=== PATIENT | male | born 1935 | race Caucasian/White ===

== ENCOUNTER 2016-03-25 09:31 | Day surgery (SDC) | payer OTHER ==
[~2016-03-25] VITALS: Ht 188 cm; Wt 150.0 kg
[~2016-03-25 09:31] MED LIST: ALLOPURINOL100 MG PO; ATIVAN0.5 MG PO; COUMADIN1 MG PO; COUMADIN2 MG PO; COUMADIN5 MG PO; CYCLOBENZAPRINE10 MG PO; CYPIONATE; ELAVIL50 MG PO; ELIQUIS5 MG PO; EMLA 30 GM30 GM TP; ENDOCET 10-3251 EACH PO; IRON325 M1 PO; LORTAB 10-3251 EACH PO; LOTRISONE15 GM TP; MIRALAX255 GM PO; NEPHRO-VITE,1 TABLET PO; NITROSTAT0.4 MG SL; PRAVACHOL20 MG PO; PREDNISONE5 MG PO; RENA-VITE RX T1 EACH PO; REQUIP0.5 MG PO; REQUIP1 MG PO; SENNA PLUS TAB1 EACH PO; SENNA-S TABLET1 EACH PO; SPIRIVA1 INHALATI IH; TESTOSTERO200 MG/12 IM; VALIUM5 MG PO; WARFARIN SODIUM5 MG PO; WARFARIN SODIUM6 MG PO; XYLOCAINE VISC100 ML MM
[2016-03-25 10:30] LABS: PROTHROMBIN TIME 20.3 (9.2-11.2); PTT 43.4 (25-32)
[2016-03-25 11:23] LABS: METH RESISTANT S AUREUS PCR NEGATIVE (NEGATIVE)
[2016-03-25 11:24] LABS: PROBE CHECK PASS; SPECIMEN PROCESSING CONTROL PASS
== END 2016-03-25 13:00 | disposition home or self-care (01) ==
LOC: CATH 09:31
PROVIDERS: Surgery
PROC: 05CB0ZZ Extirpation of Matter from Right Basilic Vein, Open Approach (ICD-10-PCS; principal; 2016-03-25)
DX: T82.868A Thrombosis due to vascular prosthetic devices, implants and grafts, initial encounter (principal); Y83.2 Surgical operation with anastomosis, bypass or graft as the cause of abnormal reaction of the patient, or of later complication, without mention of misadventure at the time of the procedure; Z99.2 Dependence on renal dialysis
CPT/HCPCS: 85610; 85730; 87641; C1725; C1757; C1769; C1874; C1894; C2628; J0690; J1644; J2250; J3010; J3370; J7050; S0020

== ENCOUNTER 2016-04-03 14:13 | Day surgery (SDC) | payer OTHER ==
[~2016-04-03] VITALS: Ht 188 cm; Wt 149.4 kg
[2016-04-03] MEDS ORDERED: LYRICA50 MG PO (15:07)
[2016-04-03] MEDS ORDERED: PRIMIDONE50 MG PO (15:08)
[2016-04-03] MEDS ORDERED: METRONIDAZOLE500 MG PO (15:11)
[2016-04-03 15:16] VITALS: BP 106/52
[2016-04-03 15:16] LABS: HEMATOCRIT 29.1 % (38.0-50.0); MCV 103.9 FL (86-99)
[2016-04-03 15:26] LABS: INTER. NORMALIZED RATIO 2.2; PROTHROMBIN TIME 23.4 (9.2-11.2)
[2016-04-03 15:42] LABS: ANION GAP 14 MEQ/L (2-14); CHLORIDE 97 MEQ/L (99-109); GFR ESTIMATE (CALCULATED) 7 mL/min/; GLUCOSE 95 mg/dL (70-99); SAMPLE HEMOLYSIS CHECK 0; SAMPLE ICTERIC CHECK 0; SAMPLE LIPEMIA CHECK 0; SODIUM 135 MEQ/L (136-147); UREA NITROGEN (BUN) 35 mg/dL (9-23)
[2016-04-03 16:28] LABS: METH RESISTANT S AUREUS PCR NEGATIVE (NEGATIVE)
[2016-04-03 16:36] LABS: PROBE CHECK PASS; SPECIMEN PROCESSING CONTROL PASS
[2016-04-03 22:12] VITALS: BP 101/51
[2016-04-03 22:45] VITALS: BP 105/49
== END 2016-04-03 23:00 | disposition home or self-care (01) ==
LOC: SDC 14:13
PROVIDERS: Surgery
DX: T82.868A Thrombosis due to vascular prosthetic devices, implants and grafts, initial encounter (principal); Y83.2 Surgical operation with anastomosis, bypass or graft as the cause of abnormal reaction of the patient, or of later complication, without mention of misadventure at the time of the procedure; Z99.2 Dependence on renal dialysis; I12.0 Hypertensive chronic kidney disease with stage 5 chronic kidney disease or end stage renal disease; N18.6 End stage renal disease; I50.9 Heart failure, unspecified; Z95.0 Presence of cardiac pacemaker; J44.9 Chronic obstructive pulmonary disease, unspecified; K21.9 Gastro-esophageal reflux disease without esophagitis
CPT/HCPCS: 80048; 85014; 85018; 85610; 87641; 93005; C1725; C1757; C1769; C1874; C1894; C2628; J1644; J2405

== ENCOUNTER 2016-04-17 09:16 | Day surgery (SDC) | payer OTHER ==
[~2016-04-17] VITALS: Ht 188 cm; Wt 149.2 kg
[~2016-04-17 09:16] MED LIST changes: +CLINDAMYCIN HC300 MG PO; +LYRICA50 MG PO; +METRONIDAZOLE500 MG PO; +PRIMIDONE50 MG PO
[2016-04-17 11:30] LABS: METH RESISTANT S AUREUS PCR NEGATIVE (NEGATIVE)
[2016-04-17 11:31] LABS: PROBE CHECK PASS; SPECIMEN PROCESSING CONTROL PASS
[2016-04-17 12:51] LABS: INTER. NORMALIZED RATIO 2.9
== END 2016-04-17 13:25 | disposition home or self-care (01) ==
LOC: CATH 09:16
PROVIDERS: Surgery
PROC: 03C70ZZ Extirpation of Matter from Right Brachial Artery, Open Approach (ICD-10-PCS; principal; 2016-04-17)
DX: T82.868A Thrombosis due to vascular prosthetic devices, implants and grafts, initial encounter (principal); Y83.2 Surgical operation with anastomosis, bypass or graft as the cause of abnormal reaction of the patient, or of later complication, without mention of misadventure at the time of the procedure; I12.0 Hypertensive chronic kidney disease with stage 5 chronic kidney disease or end stage renal disease; N18.6 End stage renal disease; J44.9 Chronic obstructive pulmonary disease, unspecified; E78.5 Hyperlipidemia, unspecified
CPT/HCPCS: 85610; 87081; 87641; C1725; C1757; C1769; C1894; C2628; J0690; J1644; J2250; J3010; S0020

== ENCOUNTER 2016-04-27 13:04 | Day surgery (SDC) | payer OTHER ==
[~2016-04-27] VITALS: Ht 188 cm; Wt 149.5 kg
[2016-04-27 14:57] VITALS: BP 110/50
[2016-04-27 15:15] LABS: INTER. NORMALIZED RATIO 1.8; PROTHROMBIN TIME 19.1 (9.2-11.2)
[2016-04-27 15:36] LABS: ANION GAP 10 MEQ/L (2-14); CHLORIDE 99 MEQ/L (99-109); GFR ESTIMATE (CALCULATED) 16 mL/min/; GLUCOSE 94 mg/dL (70-99); POTASSIUM 4.6 MEQ/L (3.7-5.4); SAMPLE HEMOLYSIS CHECK 0; SAMPLE ICTERIC CHECK 0; SAMPLE LIPEMIA CHECK 0; SODIUM 136 MEQ/L (136-147); UREA NITROGEN (BUN) 18 mg/dL (9-23)
[2016-04-27 16:12] LABS: METH RESISTANT S AUREUS PCR NEGATIVE (NEGATIVE)
[2016-04-27 16:15] LABS: PROBE CHECK PASS; SPECIMEN PROCESSING CONTROL PASS
[2016-04-27 18:25] VITALS: BP 113/58
== END 2016-04-27 18:55 | disposition home or self-care (01) ==
LOC: CATH 13:04 → SDC 13:04 → CATH 14:30 → SDC 18:55
PROVIDERS: Surgery
DX: T82.868A Thrombosis due to vascular prosthetic devices, implants and grafts, initial encounter (principal); Y83.2 Surgical operation with anastomosis, bypass or graft as the cause of abnormal reaction of the patient, or of later complication, without mention of misadventure at the time of the procedure; Z99.2 Dependence on renal dialysis; I12.0 Hypertensive chronic kidney disease with stage 5 chronic kidney disease or end stage renal disease; N18.6 End stage renal disease; K21.9 Gastro-esophageal reflux disease without esophagitis; I48.91 Unspecified atrial fibrillation; Z79.01 Long term (current) use of anticoagulants; M10.9 Gout, unspecified
CPT/HCPCS: 80048; 85610; 87641; C1757; C1768; C2628; J1644; J2250; J2405; J2720; J3010

== ENCOUNTER 2016-05-25 09:50 | Day surgery (SDC) | payer OTHER ==
[~2016-05-25] VITALS: Ht 188 cm; Wt 149.0 kg
[2016-05-25 12:11] LABS: METH RESISTANT S AUREUS PCR NEGATIVE (NEGATIVE)
[2016-05-25 12:13] LABS: PROBE CHECK PASS; SPECIMEN PROCESSING CONTROL PASS
== END 2016-05-25 14:15 | disposition home or self-care (01) ==
LOC: CATH 09:50
PROVIDERS: Surgery
DX: T82.868A Thrombosis due to vascular prosthetic devices, implants and grafts, initial encounter (principal); T82.858A Stenosis of other vascular prosthetic devices, implants and grafts, initial encounter; Y83.2 Surgical operation with anastomosis, bypass or graft as the cause of abnormal reaction of the patient, or of later complication, without mention of misadventure at the time of the procedure; N18.6 End stage renal disease; Z99.2 Dependence on renal dialysis
CPT/HCPCS: 87641; C1725; C1757; C1769; C1874; C1894; C2628; J1644; J2250; J3010; S0020

== ENCOUNTER 2016-06-23 11:02 | Day surgery (SDC) | payer OTHER ==
[2016-06-23] MEDS ORDERED: PLAVIX75 MG PO (11:37)
[2016-06-23] MEDS ORDERED: RENVELA800 MG PO (11:38)
[2016-06-23 14:58] LABS: METH RESISTANT S AUREUS PCR NEGATIVE (NEGATIVE)
[2016-06-23 15:04] LABS: PROBE CHECK PASS; SPECIMEN PROCESSING CONTROL PASS
== END 2016-06-23 13:45 | disposition home or self-care (01) ==
LOC: CATH 11:02
PROVIDERS: Surgery
DX: T82.858A Stenosis of other vascular prosthetic devices, implants and grafts, initial encounter (principal); Y83.2 Surgical operation with anastomosis, bypass or graft as the cause of abnormal reaction of the patient, or of later complication, without mention of misadventure at the time of the procedure; I12.0 Hypertensive chronic kidney disease with stage 5 chronic kidney disease or end stage renal disease; N18.6 End stage renal disease; Z99.2 Dependence on renal dialysis; J44.9 Chronic obstructive pulmonary disease, unspecified; I25.10 Atherosclerotic heart disease of native coronary artery without angina pectoris; Z98.61 Coronary angioplasty status; I25.2 Old myocardial infarction; E78.5 Hyperlipidemia, unspecified; Z99.81 Dependence on supplemental oxygen; M19.90 Unspecified osteoarthritis, unspecified site; Z96.643 Presence of artificial hip joint, bilateral; Z95.0 Presence of cardiac pacemaker; Z88.1 Allergy status to other antibiotic agents; Z88.8 Allergy status to other drugs, medicaments and biological substances; Z87.891 Personal history of nicotine dependence
CPT/HCPCS: 87641; C1725; C1769; C1894; J1644; J2250; J3010

== ENCOUNTER 2016-07-17 14:12 | Day surgery (SDC) | payer OTHER ==
[~2016-07-17 14:12] MED LIST changes: +PLAVIX75 MG PO; +RENVELA800 MG PO
[2016-07-17 17:20] LABS: METH RESISTANT S AUREUS PCR NEGATIVE (NEGATIVE)
[2016-07-17 17:23] LABS: PROBE CHECK PASS; SPECIMEN PROCESSING CONTROL PASS
== END 2016-07-17 17:58 | disposition home or self-care (01) ==
LOC: CATH 14:12
PROVIDERS: Surgery
PROC: 057Y3DZ Dilation of Upper Vein with Intraluminal Device, Percutaneous Approach (ICD-10-PCS; principal; 2016-07-17)
PROC: 3E03317 Introduction of Other Thrombolytic into Peripheral Vein, Percutaneous Approach (ICD-10-PCS; principal; 2016-07-17)
PROC: 05CY0ZZ Extirpation of Matter from Upper Vein, Open Approach (ICD-10-PCS; principal; 2016-07-17)
PROC: B51W1ZZ Fluoroscopy of Dialysis Shunt/Fistula using Low Osmolar Contrast (ICD-10-PCS; principal; 2016-07-17)
DX: T82.868A Thrombosis due to vascular prosthetic devices, implants and grafts, initial encounter (principal); I12.0 Hypertensive chronic kidney disease with stage 5 chronic kidney disease or end stage renal disease; N18.6 End stage renal disease; Z99.0 Dependence on aspirator; Z79.01 Long term (current) use of anticoagulants; I25.10 Atherosclerotic heart disease of native coronary artery without angina pectoris; J44.9 Chronic obstructive pulmonary disease, unspecified; E78.00 Pure hypercholesterolemia, unspecified; Z95.0 Presence of cardiac pacemaker; Z79.4 Long term (current) use of insulin; Z87.891 Personal history of nicotine dependence
CPT/HCPCS: 87641; C1725; C1757; C1769; C1894; C2628; J1644; J2250; J3010; S0020

== ENCOUNTER 2016-07-31 12:43 | Day surgery (SDC) | payer OTHER ==
[~2016-07-31] VITALS: Ht 188 cm; Wt 149.0 kg
[~2016-07-31 12:43] MED LIST changes: +AMOXICILLIN500 MG PO
[2016-07-31] MEDS ORDERED: ELAVIL50 MG PO (13:21)
[2016-07-31 13:22] LABS: HEMATOCRIT 38.6 % (38.0-50.0); MCH 32.5 PG (29.0-34.0); MCHC 31.3 G/DL (30.0-36.0); MCV 103.8 FL (86-99); MEAN PLAT.VOLUME 9.7 uM^3 (9.0-12.4); PLATELET COUNT 154 K/uL (156-360); RBC DIS.WIDTH-CV 15.8 % (11.8-14.6); RBC DIS.WIDTH-SD 59.3 % (39-53); RED BLOOD COUNT 3.72 M/uL (4.00-5.50); WHITE BLOOD COUNT 8.4 K/uL (4.1-10.2)
[2016-07-31] MEDS ORDERED: FISH OIL300 MG PO (13:22)
[2016-07-31] MEDS ORDERED: SENNA LAXATIVE25 MG PO (13:23)
[2016-07-31 13:27] VITALS: BP 123/58
[2016-07-31 13:36] LABS: INTER. NORMALIZED RATIO 1.3; PROTHROMBIN TIME 12.9 (9.2-11.2); PTT 29.9 (25-32)
[2016-07-31 13:47] LABS: ANION GAP 14 MEQ/L (2-14); CHLORIDE 99 MEQ/L (99-109); GFR ESTIMATE (CALCULATED) 16 mL/min/; GLUCOSE 96 mg/dL (70-99); POTASSIUM 4.8 MEQ/L (3.7-5.4); SAMPLE HEMOLYSIS CHECK 0; SAMPLE ICTERIC CHECK 0; SAMPLE LIPEMIA CHECK 0; SODIUM 139 MEQ/L (136-147); UREA NITROGEN (BUN) 15 mg/dL (9-23)
[2016-07-31 14:28] LABS: METH RESISTANT S AUREUS PCR NEGATIVE (NEGATIVE)
[2016-07-31 14:29] LABS: PROBE CHECK PASS; SPECIMEN PROCESSING CONTROL PASS
[2016-07-31 17:25] VITALS: BP 160/68
[2016-07-31 18:02] VITALS: BP 135/71
== END 2016-07-31 18:10 | disposition home or self-care (01) ==
LOC: SDC 12:43
PROVIDERS: Surgery
DX: T82.41XA Breakdown (mechanical) of vascular dialysis catheter, initial encounter (principal); I12.0 Hypertensive chronic kidney disease with stage 5 chronic kidney disease or end stage renal disease; N18.6 End stage renal disease; Z99.2 Dependence on renal dialysis; I25.10 Atherosclerotic heart disease of native coronary artery without angina pectoris; I25.2 Old myocardial infarction; J44.9 Chronic obstructive pulmonary disease, unspecified; E78.00 Pure hypercholesterolemia, unspecified; Z95.0 Presence of cardiac pacemaker; Z95.5 Presence of coronary angioplasty implant and graft; Z87.891 Personal history of nicotine dependence; Z79.01 Long term (current) use of anticoagulants; Z79.02 Long term (current) use of antithrombotics/antiplatelets; K21.9 Gastro-esophageal reflux disease without esophagitis
CPT/HCPCS: 80048; 85027; 85610; 85730; 87641; C1768; C2628; J1644; J2405; J2720; J3010

== ENCOUNTER 2017-02-02 12:33 | Day surgery (SDC) | payer OTHER ==
[~2017-02-02 12:33] MED LIST changes: +DOK PLUS TABLE1 EACH PO; +ELAVIL25 MG PO; +FISH OIL300 MG PO
[2017-02-02] MEDS ORDERED: VENTOLIN HFA18 GM IH (12:59)
[2017-02-02] MEDS ORDERED: TUMS500 MG PO (13:04)
[2017-02-02] MEDS ORDERED: ARANESP25 MCG/0.4 IV (13:06)
[2017-02-02] MEDS ORDERED: ALLEGRA ALLERG180 MG PO (13:09)
[2017-02-02] MEDS ORDERED: VIRT-VITE PLUS T5 MG PO (13:11)
[2017-02-02] MEDS ORDERED: [UNRECOGNIZED DRUG - OTHER] IV (13:13)
[2017-02-02] MEDS ORDERED: MIRALAX17 GM PO (13:14)
[2017-02-02] MEDS ORDERED: PRAVACHOL20 MG PO (13:15)
[2017-02-02] MEDS ORDERED: MYSOLINE50 MG PO (13:16)
[2017-02-02] MEDS ORDERED: SPIRIVA18 MCG IH (13:21)
[2017-02-02 14:08] LABS: METH RESISTANT S AUREUS PCR NEGATIVE (NEGATIVE); PROBE CHECK PASS; SPECIMEN PROCESSING CONTROL PASS
== END 2017-02-02 15:15 | disposition home or self-care (01) ==
LOC: CATH 12:33
PROVIDERS: Surgery
PROC: 05HY33Z Insertion of Infusion Device into Upper Vein, Percutaneous Approach (ICD-10-PCS; principal; 2017-02-02)
PROC: B51W1ZZ Fluoroscopy of Dialysis Shunt/Fistula using Low Osmolar Contrast (ICD-10-PCS; principal; 2017-02-02)
PROC: 3E03317 Introduction of Other Thrombolytic into Peripheral Vein, Percutaneous Approach (ICD-10-PCS; principal; 2017-02-02)
PROC: 057Y3ZZ Dilation of Upper Vein, Percutaneous Approach (ICD-10-PCS; principal; 2017-02-02)
DX: T82.858A Stenosis of other vascular prosthetic devices, implants and grafts, initial encounter (principal); I12.0 Hypertensive chronic kidney disease with stage 5 chronic kidney disease or end stage renal disease; N18.6 End stage renal disease; Z99.2 Dependence on renal dialysis; I25.10 Atherosclerotic heart disease of native coronary artery without angina pectoris; E78.00 Pure hypercholesterolemia, unspecified; J44.9 Chronic obstructive pulmonary disease, unspecified; Z99.81 Dependence on supplemental oxygen; Z79.01 Long term (current) use of anticoagulants; Z87.891 Personal history of nicotine dependence; Z95.5 Presence of coronary angioplasty implant and graft
CPT/HCPCS: 87641; C1725; C1769; C1894; J1644; J2250; J3010